=== PATIENT | male | born 1975 | race Caucasian/White ===

== ENCOUNTER 2024-04-12 12:26 | Inpatient (IN) | payer BC ==
[2024-04-12 13:40] VITALS: BMI 25.8
[2024-04-12] MEDS ORDERED: chlordiazePOXIDE HCL 25 MG CAPSULE PO PRN (15:14)
[2024-04-12] MEDS ORDERED: BENZOCAINE/MENTHOL (CHLORASEPTIC ) LOZENGE MM PRN (15:16)
[2024-04-12] MEDS ORDERED: IBUPROFEN 400 MG TABLET (FP) PO PRN (15:16)
[2024-04-12] MEDS ORDERED: ACETAMINOPHEN 325 MG TABLET (FP) PO PRN (15:16)
[2024-04-12] MEDS ORDERED: BISMUTH SUBSALICYLATE 262 MG/15 ML BTL PO PRN (15:16)
[2024-04-12] MEDS ORDERED: MAGNESIUM HYDROX 2400MG/30ML ORAL SUSPENSION 30 ML CUP PO PRN (15:16)
[2024-04-12] MEDS ORDERED: guaiFENesin 600 MG TABLET.ER (FP) PO PRN (15:16)
[2024-04-12] MEDS ORDERED: POLYETHYLENE GLYCOL (HEALTHYLAX) 3350 17 GM PACKET PO PRN (15:16)
[2024-04-12] MEDS ORDERED: NALOXONE (NARCAN) HCL 4 MG/0.1 ML SPRAY NS PRN (15:16)
[2024-04-12] MEDS ORDERED: NICOTINE POLACRILEX 2 MG GUM BUC PRN (15:16)
[2024-04-12] MEDS ORDERED: LOPERAMIDE HCL 2 MG CAPSULE PO PRN (15:16)
[2024-04-12] MEDS ORDERED: NALOXONE HCL 0.4 MG/ML VIAL IM PRN (15:16)
[2024-04-12] MEDS ORDERED: NICOTINE POLACRILEX 2 MG LOZENGE BC PRN (15:16)
[2024-04-12] MEDS ORDERED: IBUPROFEN 600 MG TABLET (FP) PO PRN (15:16)
[2024-04-12] MEDS ORDERED: BENZONATATE 200 MG CAPSULE PO PRN (15:16)
[2024-04-12] MEDS ORDERED: methaDONE HCL 10 MG TABLET (FOR DETOX USE ONLY) ONE (15:57)
[2024-04-12] MEDS: methaDONE HCL 10 MG TABLET (FOR DETOX USE ONLY) PO ONE (16:00)
[2024-04-12] MEDS: chlordiazePOXIDE HCL 25 MG CAPSULE PO SCH (17:06)
[2024-04-12] MEDS: MELATONIN 5 MG TABLETS PO SCH (22:05)
[2024-04-12] MEDS: THIAMINE 100 MG TABLET PO SCH (22:06)
[2024-04-12] MEDS: METHOCARBAMOL 500 MG TABLET PO PRN (22:08)
[2024-04-12] MEDS: cloNIDine HCL 0.1 MG TABLET PO PRN (22:08)
[2024-04-12] MEDS: P-EPHED 60MG/TRIPROLIDI 2.5MG TABLET PO PRN (22:09)
[2024-04-13] MEDS: PRENATAL VITAMINS W/ FOLIC ACID TABLET (FP) PO SCH (10:26)
[2024-04-13 12:47] LABS: HEMATOCRIT 38.1 % (35.4-49); HEMOGLOBIN 13.2 GM/dL (11.7-16.9); MCH 32.8 pg (25.7-33.7); MCHC 34.8 g/dl (32.0-35.9); MEAN CELL VOLUME 94.3 fl (80-96); MEAN PLT VOLUME 8.1 fl (7.5-11.1); PLATELET COUNT 153 10^3/uL (134-434); RBC 4.03 M/mm3 (4.00-5.60); RDW 13.1 % (11.9-15.9); WHITE BLOOD COUNT 3.8 K/mm3 (4.0-10.0)
[2024-04-13] MEDS: GABAPENTIN 100 MG CAPSULE PO SCH (13:37)
[2024-04-13 14:11] LABS: POTASSIUM 4.1 mmol/L (3.5-5.1); SODIUM 142 mmol/L (136-145)
[2024-04-13 14:18] LABS: BLOOD UREA NITROGEN 16.6 mg/dL (7-18); CALCIUM 8.6 mg/dL (8.5-10.1)
[2024-04-13 14:19] LABS: ALBUMIN 3.6 g/dl (3.4-5.0); CO2 28 mmol/L (21-32); GLUCOSE,RANDOM 78 mg/dL (74-106)
[2024-04-13 14:21] LABS: SGOT/AST 23 U/L (15-37); SGPT/ALT 34 U/L (13-61)
[2024-04-13 14:23] LABS: BILIRUBIN,TOTAL 0.4 mg/dL (0.2-1); TOT PROT 6.1 g/dl (6.4-8.2)
[2024-04-13 14:24] LABS: ALK PHOS 71 U/L (45-117)
[2024-04-13 14:27] LABS: ANION GAP 5 mmol/L (4-13); CHLORIDE 108 mmol/L (98-107); CREATININE 0.8 mg/dL (0.55-1.3)
[2024-04-14] MEDS: chlordiazePOXIDE HCL 25 MG CAPSULE PO SCH (05:52)
[2024-04-14] MEDS: methaDONE 40 MG, methaDONE 10 MG PO ONE (09:55)
[2024-04-14] MEDS ORDERED: methaDONE HCL 10 MG TABLET (FOR DETOX USE ONLY) PO ONE (10:00)
[2024-04-14] MEDS: methaDONE HCL 10 MG TABLET PO ONE (11:09)
[2024-04-14] MEDS: diazePAM 5 MG TABLET PO PRN (13:37)
[2024-04-14] MEDS: diazePAM 5 MG TABLET PO SCH (17:16)
[2024-04-15] MEDS ORDERED: chlordiazePOXIDE HCL 10 MG CAPSULE PO PRN
[2024-04-15] MEDS ORDERED: chlordiazePOXIDE HCL 10 MG CAPSULE PO SCH (05:00)
[2024-04-15] MEDS: diazePAM 5 MG TABLET PO SCH (05:31)
[2024-04-15] MEDS: methaDONE 40 MG, methaDONE 30 MG PO ONE (09:21)
[2024-04-15] MEDS ORDERED: methaDONE HCL 40 MG DISPERSABLE TABLET PO ONE (10:00)
[2024-04-15] MEDS ORDERED: methaDONE 40 MG, methaDONE 20 MG PO ONE (10:00)
[2024-04-16] MEDS ORDERED: chlordiazePOXIDE HCL 10 MG CAPSULE PO SCH (05:00)
[2024-04-16] MEDS: diazePAM 5 MG TABLET PO SCH (05:42)
[2024-04-16] MEDS ORDERED: methaDONE HCL 10 MG TABLET (FOR DETOX USE ONLY) PO ONE (10:00)
[2024-04-16] MEDS ORDERED: methaDONE HCL 40 MG DISPERSABLE TABLET PO ONE (10:00)
[2024-04-16] MEDS ORDERED: methaDONE 40 MG, methaDONE 30 MG PO ONE (10:00)
[2024-04-16] MEDS: MAG HYDROX/AL HYDROX/SIMETH 30 ML UNIT-DOSE CUP PO PRN (12:39)
[2024-04-16] MEDS: GABAPENTIN 300 MG CAPSULE PO SCH (13:24)
[2024-04-16] MEDS: methaDONE HCL 10 MG TABLET PO ONE (13:25)
[2024-04-17] MEDS ORDERED: chlordiazePOXIDE HCL 10 MG CAPSULE PO ONE (05:00)
[2024-04-17] MEDS: diazePAM 5 MG TABLET PO ONE (05:50)
[2024-04-17] MEDS ORDERED: methaDONE HCL 40 MG DISPERSABLE TABLET PO ONE ×2 (06:00→10:00)
[2024-04-17] MEDS: DICYCLOMINE HCL 10 MG CAPSULE PO PRN (06:24)
[2024-04-17] MEDS: methaDONE 80 MG, methaDONE 10 MG PO ONE (09:06)
[2024-04-17 09:19] VITALS: BP 122/68; PULSE 103; RESP 16; TEMP 97.7
[2024-04-18] MEDS ORDERED: methaDONE 80 MG, methaDONE 10 MG PO ONE (10:00)
== END 2024-04-17 11:05 | disposition home or self-care (01) | DRG 773 ==
LOC: YASAS 12:26 → Y6N 16:26
PROVIDERS: ADMIT Allergy & Immunology; ATTEND Surgery
PROC: HZ2ZZZZ Detoxification Services for Substance Abuse Treatment (ICD-10-PCS; principal; 2024-04-12)
DX: F11.23 Opioid dependence with withdrawal (principal); F10.230 Alcohol dependence with withdrawal, uncomplicated; F14.20 Cocaine dependence, uncomplicated; F12.20 Cannabis dependence, uncomplicated; F17.210 Nicotine dependence, cigarettes, uncomplicated; F19.282 Other psychoactive substance dependence with psychoactive substance-induced sleep disorder; F19.280 Other psychoactive substance dependence with psychoactive substance-induced anxiety disorder; F19.24 Other psychoactive substance dependence with psychoactive substance-induced mood disorder; F41.9 Anxiety disorder, unspecified
CPT/HCPCS: 36415; 71045-TC-FY; 80053; 80305; 80307; 85027; 86780; 93005; 93010